=== PATIENT | male | born 1985 | race Caucasian/White ===

== ENCOUNTER 2018-08-13 13:02 | Inpatient (IN) | payer OTHER, SELFPAY ==
[2018-08-04 15:14] VITALS: BMI 26.6
[2018-08-13] VITALS (12 sets, daily range): BP systolic 125–148; BP diastolic 72–89; PULSE 70–86; RESP 12–21; TEMP 36.3–36.9; O2SAT 92–99; BMI 26.6
--- NOTE | 2018-08-13 | DI.RAD.S_ITS ---
PROCEDURE: XR CERVICAL SPINE 2V OR 3V INDICATIONS: C5-6, C6-7 ACDF TECHNIQUE: 2 intraoperative spot view(s) of the cervical spine were acquired. COMPARISON: None. FINDINGS: Intraoperative images demonstrate C5-C7 anterior fusion. IMPRESSION: Low anterior cervical fusion. Dictated by: Karthik Morales M.D. on 08/13/2018 at 17:43 Approved by: Karthik Morales M.D. on 08/13/2018 at 17:43
[2018-08-13] MEDS: LACTATED RINGERS 1,000 ML 42 ML IV ×2 (13:56→16:57)
--- NOTE | 2018-08-13 15:29 | PM.PREOP ---
Pre-operative Note Interval Note Pre-op Check: Yes History & Physical Reviewed by Physician, Yes Exam Performed and Yes History & Physical exam performed today by Physician Changes: No
[2018-08-13] MEDS: CEFAZOLIN 2 GM/100 ML FROZ.PIGGY IV (16:10)
--- NOTE | 2018-08-13 16:30 | SUR.OPER ---
Supine, head on gel donut. Arms padded with gel pads, tucked at sides, towel roll under shoulders. Safety belt at thigh. Legs uncrossed.
--- NOTE | 2018-08-13 17:46 | PM.OP.1 ---
Operative Date/Time/Diagnoses Date of procedure: 08/13/18 Time of procedure: 15:46 Pre-op diagnosis: 1. C5-6, C6-7 spinal stenosis 2. C5-6, c6-7 disc herniation with radiculopathy Post-op diagnosis: same Procedure & Clinicians Procedure: 1. C5-6 C6-7 anterior cervical diskectomy and fusion 2. C5-6 C6-7 anterior interbody cage placement 3. C5-6 C6-7 anterior instrumentation with plate and screw placement in C5-C6 and C7 vertebrae 4. Utilization of microsurgical technique and operating microscope Same procedure as scheduled: Yes Indications: Patient has been having chronic neck pain and worsening cervical radiculopathy. Patient failed multiple conservative management with worsening pain weakness and numbness in her upper extremity. Patient has been having difficulty performing activity of daily living. After discussing risks benefits of treatment options, patient elected proceed with surgery. Surgeon: Darius Mcmahan Payroll Benefits Administrator: Julee Benites Click Yes if Unassisted: No Anesthesia Type: General Operative Notes Closure Type: primary Specimen(s): none sent Estimated Blood Loss (mL): 50 Blood products transfused: none Procedure in detail: Patient was seen in the preoperative area. Risks and benefits of the surgery was discussed with the patient. Operative consent was obtained and placed in the chart. Patient was then taken to the operative room. Prophylactic antibiotic was given less than 0.5 hr prior to skin incision. General anesthesia was administered. Patient was placed into a supine position on her radiolucent table. Bilateral shoulders were taped down to allow proper C-arm imaging. Anterior cervical area was prepped and draped in a sterile fashion. Time-out was performed at this time. Using lateral C-arm imaging, the level between C5 and C7 was identified and marked on patient's neck. A oblique incision from midline towards medial border of sternocleidomastoid muscle was made. The platysma muscle was incised in line with skin incision. Metzenbaum scissor was used to develop the plane between the medial border of sternocleidomastoid d and the strap muscles medially. The carotid sheath and its contents were identified and protected behind the hand-held retractor during the entire case. The plane between the carotid sheath and strap muscles was developed with Metzenbaum scissors. Dissection was made down to the level of the anterior cervical fascia. Longus colli muscle was incised on the anterior aspect of vertebral bodies bilaterally from C5-C7. Spinal needle was placed into the C5-6 disc space and confirmed with lateral C-arm imaging. Using microsurgical technique and operative microscope, anterior cervical diskectomy was performed at C5-6 and C6-7 level. This was done by removing the disc material, removing the anterior and posterior osteophytes posterior longitudinal ligaments along with performing bilateral foraminotomies at both levels. Patient was found to have severe central and foraminal stenosis at both levels due to disc hernation. Patient's stenosis was fully decompressed after decompression was completed. After the diskectomy was completed, 2 anterior interbody cages were obtained. The cages were packed with globus via cell bone grafting material. One cage each along with the bone grafting material was then packed into the interbody spaces from C5-C7 with one cage into each interbody level. After the cages were placed, the anterior cervical plate was stabilized to the C5-C7 vertebrae using 2 screws at each each level. Total 6 screws were placed. After confirming placement of the hardware with AP and lateral C-arm imaging, the screws were locked into the plate using the locking mechanism and torque limiting screwdriver. After the hardware was placed and confirmed with AP and lateral C-arm imaging, the wound was irrigated with sterile normal saline. The platysma muscle and the subcutaneous tissue was closed with 2-0 Vicryl. The skin was closed with 4-0Monocryl and Steri-Strips. Patient tolerated the procedure well. Patient was transferred recovery room in stable condition. There were no complications. Complications: none Condition: stable Disposition: PACU
[2018-08-13] MEDS: HYDROMORPHONE 2 MG INJ 0.5 MG IV ×2 (18:08→18:13)
--- NOTE | 2018-08-13 18:47 | SUR.PHASEI ---
stable pacu stay, medicated with dilaudid, dressing remained c/d/i, neck with no swelling. speech and swallow strong and intact. pt transported up to room 221 and left in stable condition.
--- NOTE | 2018-08-13 19:01 | PC.NURSE ---
1835 :Pt to acute care from PACU. Transferred via bed. Drowsy/oriented. Reports 3/10 pain in posterior neck/shoulders, ice pack applied. Dressing to anterior neck c/d/i, soft collar in place, denies numbness/tingling. Spouse present at bedside for admission. IV flushed well/fluids started per order. Bilateral foot SCDs applied. Oriented to room and call light.
[2018-08-13] MEDS: hydrOXYzine pamoate 25 MG CAPSULE PO (19:18)
[2018-08-13] MEDS: SODIUM CHLORIDE 0.9% 1,000 ML 100 ML IV (19:20)
[2018-08-13] MEDS: OXYCODONE IR 5 MG TABLET 10 MG PO (22:05)
[2018-08-14 00:10] VITALS: BP 136/66; PULSE 69; RESP 16; TEMP 36.8; O2SAT 95
[2018-08-14] MEDS: CEFAZOLIN 2 GM/100 ML FROZ.PIGGY IV ×2 (00:16→07:33)
[2018-08-14] MEDS: HYDROMORPHONE 1 MG INJ 0.5 MG IV (00:16)
[2018-08-14] MEDS: OXYCODONE IR 5 MG TABLET 10 MG PO ×4 (01:08→11:02)
[2018-08-14 04:24] VITALS: BP 136/74; PULSE 84; RESP 16; TEMP 36.7; O2SAT 96
[2018-08-14] MEDS: DOCUSATE 100 MG CAPSULE PO (07:42)
[2018-08-14] MEDS: SODIUM CHLORIDE 0.9% FLUSH 10 ML IV (07:42)
[2018-08-14 08:00] VITALS: BP 132/90; PULSE 104; RESP 16; TEMP 37.1; O2SAT 95
--- NOTE | 2018-08-14 08:11 | PM.DS.1 ---
History of Present Illness Date Patient Seen: 08/14/18 Time Patient Seen: 08:11 Chief complaint: C5-6 C6-7 acdf [id number] Narrative: Details of the patient's H&P be found in the electronic chart. Patient is a 33-year-old male with history of neck pain with radiation down to fingers. He failed conservative measures and elected to proceed with a C5-6, C6-[address] Mcmahan at [facility]. Discharge Providers Date of admission: 08/13/18 13:02 Primary care physician: Karolyn Alicea DO Consults: 08/13/18 18:41 Consult to Occupational Therapy Evaluate & Treat Comment: Physician Instructions: Evaluate and treat Consult to Physical Therapy Evaluate & Treat Comment: Physician Instructions: Evaluate and Treat 08/13/18 18:58 Consult to Respiratory Therapy Evaluate & Treat Comment: Physician Instructions: Evaluate and treat Discharge provider: Rachael Rosario PA-C Discharge Date: 08/14/18 Summary Discharge Diagnosis: 1. C5-6, C6-7 spinal stenosis 2. C5-6, C6-7 disc herniation with radiculopathy Hospital Course: Patient was admitted and taken operating room where had a C5-6, C6-[address] Mcmahan. He recovered well and was transferred to the floor for further care. Postop day 1 pain was under control, able to swallow without difficulty, eating and drinking well, urinating without difficulty and ambulating well. He will be discharged home after physical therapy this morning. He will be discharged with prescription for oxycodone 10 mg and Vistaril 25 mg. He will follow up as scheduled [facility] in 10-14 days. Status at Discharge Cognitive/behavioral status at discharge: Alert orient x3 Functional status at discharge: independent ambulation Overall status at discharge: patient is progressing back to baseline Time Spent with Patient Less than 30 minutes Exam Vital Signs (past 8 hours): - 08/14/18 04:24 Temperature 98.0 F Pulse Rate 84 Respiratory Rate 16 Blood Pressure 136/74 Pulse Oximetry 96 Oxygen Delivery Method Nasal Cannula Oxygen Flow Rate 0 Narrative Exam Narrative: Patient in bed. Appears comfortable. Alert orient x3. Soft neck collar on. Left neck dressing clean dry and intact. 5/5 BUE strength. Neurovascular status intact. Bilateral calf soft and nontender. Discharge Plan Discharge Plan Patient Disposition: Home Discharge comment: Wear soft collar until follow-up visit. Do not take more than 4000mg/day of Tylenol from all sources. Do not take anti-inflammatories for 90 days after surgery. Discharge Med Rec/Prescriptions Prescriptions: New acetaminophen 325 mg Tablet 650 mg PO Q6HR PRN (Reason: Pain, Mild (1-3)) Qty: 0 RF: 0 docusate sodium 100 mg Capsule 100 mg PO BID Qty: 60 RF: 0 hydroxyzine pamoate 25 mg Capsule 25 mg PO Q4HR PRN (Reason: Nausea And Vomiting) Qty: 40 RF: 0 oxycodone 10 mg tablet 10 mg PO Q4-6H PRN (Reason: pain) Qty: 42 RF: 0 Discontinued ibuprofen 800 mg Tablet 800 mg PO TID PRN (Reason: Pain (Scale Score 4-6)) RF: 0 Follow up/Referrals: Darius Mcmahan MD [Physician] - (Follow-up as scheduled time and date. Contact office with any issues or concerns.) Provider Discharge Instructions Diet: Diet as Tolerated Diet comment: If difficulty swallowing, more liquids and soft foods. Activity: Activity as tolerated. Limit lifting bending and twisting of the neck. Cold/Heat Therapy: Apply ice to the area as needed for pain and inflammation. Skin/Wound/Dressing Care Report to your healthcare provider any signs of infection, such as:: chills, fever, increased pain and unusual drainage Dressing: Leave dressing clean dry and intact. May shower. Discharge Data Primary Care Provider: Karolyn Alicea Attending Provider: Darius Mcmahan Admit Date/Time: 08/13/18 13:02 Quality VTE Deep Vein Thrombosis/Pulmonary Embolism Present on Admission: No
--- NOTE | 2018-08-14 08:16 | P.DS_ITS ---
History of Present Illness Date Patient Seen: 08/14/18 Time Patient Seen: 08:11 Chief complaint: C5-6 C6-7 acdf [id number] Narrative: Details of the patient's H&P be found in the electronic chart. Patient is a 33-year-old male with history of neck pain with radiation down to fingers. He failed conservative measures and elected to proceed with a C5-6, C6 -[address] Mcmahan at [facility]. Discharge Providers Date of admission: 08/13/18 13:02 Primary care physician: Karolyn Alicea DO Consults: 08/13/18 18:41 Consult to Occupational Therapy Evaluate & Treat Comment: Physician Instructions: Evaluate and treat Consult to Physical Therapy Evaluate & Treat Comment: Physician Instructions: Evaluate and Treat 08/13/18 18:58 Consult to Respiratory Therapy Evaluate & Treat Comment: Physician Instructions: Evaluate and treat Discharge provider: Rachael Rosario PA-C Discharge Date: 08/14/18 Summary Discharge Diagnosis: 1. C5-6, C6-7 spinal stenosis 2. C5-6, C6-7 disc herniation with radiculopathy Hospital Course: Patient was admitted and taken operating room where had a C5-6 , C6-[address] Mcmahan. He recovered well and was transferred to the floor for further care. Postop day 1 pain was under control, able to swallow without difficulty, eating and drinking well, urinating without difficulty and ambulating well. He will be discharged home after physical therapy this morning. He will be discharged with prescription for oxycodone 10 mg and Vistaril 25 mg. He will follow up as scheduled [facility] in 10-14 days. Status at Discharge Cognitive/behavioral status at discharge: Alert orient x3 Functional status at discharge: independent ambulation Overall status at discharge: patient is progressing back to baseline Time Spent with Patient Less than 30 minutes Exam Vital Signs (past 8 hours): - 08/14/18 04:24 Temperature 98.0 F Pulse Rate 84 Respiratory Rate 16 Blood Pressure 136/74 Pulse Oximetry 96 Oxygen Delivery Method Nasal Cannula Oxygen Flow Rate 0 Narrative Exam Narrative: Patient in bed. Appears comfortable. Alert orient x3. Soft neck collar on. Left neck dressing clean dry and intact. 5/5 BUE strength. Neurovascular status intact. Bilateral calf soft and nontender. Discharge Plan Discharge Plan Patient Disposition: Home Discharge comment: Wear soft collar until follow-up visit. Do not take more than 4000mg/day of Tylenol from all sources. Do not take anti-inflammatories for 90 days after surgery. Discharge Med Rec/Prescriptions Prescriptions: New acetaminophen 325 mg Tablet 650 mg PO Q6HR PRN (Reason: Pain, Mild (1-3)) Qty: 0 RF: 0 docusate sodium 100 mg Capsule 100 mg PO BID Qty: 60 RF: 0 hydroxyzine pamoate 25 mg Capsule 25 mg PO Q4HR PRN (Reason: Nausea And Vomiting) Qty: 40 RF: 0 oxycodone 10 mg tablet 10 mg PO Q4-6H PRN (Reason: pain) Qty: 42 RF: 0 Discontinued ibuprofen 800 mg Tablet 800 mg PO TID PRN (Reason: Pain (Scale Score 4-6)) RF: 0 Follow up/Referrals: Darius Mcmahan MD [Physician] - (Follow-up as scheduled time and date. Contact office with any issues or concerns.) Provider Discharge Instructions Diet: Diet as Tolerated Diet comment: If difficulty swallowing, more liquids and soft foods. Activity: Activity as tolerated. Limit lifting bending and twisting of the neck. Cold/Heat Therapy: Apply ice to the area as needed for pain and inflammation. Skin/Wound/Dressing Care Report to your healthcare provider any signs of infection, such as:: chills, fever, increased pain and unusual drainage Dressing: Leave dressing clean dry and intact. May shower. Discharge Data Primary Care Provider: Karolyn Alicea Attending Provider: Darius Mcmahan Admit Date/Time: 08/13/18 13:02 Quality VTE Deep Vein Thrombosis/Pulmonary Embolism Present on Admission: No
--- NOTE | 2018-08-14 09:46 | PT.IIE ---
Addendum entered and electronically signed by Sonam Barrios PT 08/14/18 14:10: this is to certify that I have reviewed this POC and documentation. Original Note: Current Diagnoses Other spondylosis with radiculopathy, cervical region (08/13/18) Spinal stenosis, cervical region (08/13/18) Surgery Performed Operation Date: 08/13/18 14:45 Actual Procedures p C5-6,C6-7 ACDF w/Anterior Instru. - Darius Mcmahan MD Medical History (Last Updated 08/04/18 @ 15:21 by Kasandra Jamison RN) Alcohol dependence (Acute) Cervical spinal stenosis (Acute) Depressive disorder (Acute) Radiculopathy (Acute) Physical Therapy Inpatient Evaluation/Re-Eval M1 PT/OT-IP Prior Functional Status Start: 08/14/18 09:32 Freq: NEEDED Status: Discharge Protocol: Document 08/14/18 09:40 CCC (Rec: 08/14/18 09:55 CCC [email or web address]) Medical Review Prior Functional Status Medical History Reviewed Yes Communication Independent. Mobility and Gait Independent with no device. Activities of Daily Living and IADL's Independent. Social History Household Members spouse children Living Arrangements Apartment/Condo Number of Stairs To Enter/Railing? One step into his townhouse and 13 steps with right hand rail going up. Home Environment Standard Height Toilet Tub/Shower Doors Home Equipment Shower Seat without Backrest Employment Status Active Duty M1 PT/OT-IP Prior Functional Status Start: 08/14/18 11:43 Freq: NEEDED Status: Active Protocol: Document 08/14/18 09:46 (Rec: 08/14/18 12:00 [email or web address]) Medical Review Prior Functional Status Medical History Reviewed Yes Communication No deficits noted. Mobility and Gait Independent with all mobilties using no AD including driving and self care. Social History Household Members spouse children Living Arrangements Apartment/Condo Number of Stairs To Enter/Railing? One step into his townhouse and 13 steps with right hand rail going up. Home Environment Standard Height Toilet Tub/Shower Employment Status Active Duty Additional Social History Comment Pt lives with , and 2 children 4 and 1 y/o. Has a chair with rubber feet he can use as a shower chair. Shower and bedroom are upstairs. M2 PT-IP Current Condition Start: 08/14/18 11:43 Freq: NEEDED Status: Active Protocol: Document 08/14/18 09:46 (Rec: 08/14/18 12:00 [email or web address]) Physical Therapy Current Condition Current Condition Evaluation Date 08/14/18 Treatment Diagnosis C spine discectomy/fusion; difficulty walking Onset Date 08/13/2018 Precautions Cervical Spine Precautions Soft Collar for Comfort No Heavy Lifting Log Roll M3 PT-IP Subjective Start: 08/14/18 11:43 Freq: NEEDED Status: Active Protocol: Document 08/14/18 09:46 (Rec: 08/14/18 12:00 [email or web address]) Subjective Physical Therapy Visit Type Type Initial Evaluation Visit Start Time 09:46 Visit Stop Time 10:10 Total Visit Minutes 24 Number of [employer] AND SKIN Visits 0 Physical Therapy Visit Comments Patient Comments Pt agreeable to mobilize with PT. Patient Goals Pt planning to d/c home with who is avaliable for 24/7 assist, as well as his brother in law who is also avaliable for 24/7 assist for 1 wk. Therapy Pain Assessment Pain Present Pain Present Pain Reported Location Neck Scale Used 3-4/10 Pain Management Techniques Apply Cold Modification of Treatment Re-positioning Timing of Activity with Medications M4 PT-IP Mobility and Gait Start: 08/14/18 11:43 Freq: NEEDED Status: Active Protocol: Document 08/14/18 09:46 (Rec: 08/14/18 12:00 [email or web address]) PT-Bed Mobility Assessment Rolling Type of Rolling Bilateral Level of Assist Standby Assistance Supine to Sit Supine to Sit Standby Assistance Sit to Supine Sit to Supine Standby Assistance Scooting Scooting to Edge of Bed Standby Assistance PT-Transfer Assessment Sit to and From Stand Sit to and from Stand Standby Assistance Equipment Transfer Assistive Device None Gait Belt Front Wheeled Walker Orthotic/Prosthetic Devices or Brace: Yes Transfers Transfer Destination Bed Wheelchair Transfer Technique Ambulates between surfaces. Comments Mobility Comments Resting/supine/HOB BP 137/84 HR 97. Supine <> sit is SBA min cues. Sit <> stand assessed first with fww and is SBA no cues, pt does not use UE. Sit <> stand no AD is SBA . Gait Assessment Gait Gait Assistance Required: Standby Assistance Distance (Feet) 250 Able to Maintain Weight Bearing Status Yes During Gait Assistive Devices Assistive Device None Gait Belt Front Wheeled Walker Orthotic/Prosthetic Devices or Brace: No Gait Deviations General Gait Pattern Within Normal Limits Factors Limiting Gait Function Factors Limiting Gait Function Decreased Activity Tolerance Limited Range of Motion Pain Comments Gait Comments Pt ambulates 20 ft in room with fww SBA demonstrating no LOB. Pt ambulates 250 ft with no AD SBA demonstrating good posture, gait mechanics and no LOB. Stair Climbing Assessment Evaluation Level of Assist On Stairs Standby Assistance Devices Stair Climbing Assistive Devices Right Railing Technique/Endurance Stair Climbing Direction Ascend and Descend Stair Climbing Technique Step Over Step Number of Steps Climbed 3 Query Text: Stair Climbing Set # Repetitions (reps) 5 Comments Stair Climbing Comments Pt up/down 15 steps using R rail SBA with no LOB. Pt without c/o of nausea or dizziness. Post session BP 138/78 HR 86. PT-Balance Assessment Sitting Balance and Reactions Static Sitting Balance Ability Good Dynamic Sitting Balance Ability Good Standing Balance and Reactions Static Standing Balance Ability Good Dynamic Standing Balance Ability Good Device Used none M5 PT-IP Objective Assessments Start: 08/14/18 11:43 Freq: NEEDED Status: Active Protocol: Document 08/14/18 09:46 (Rec: 08/14/18 12:00 [email or web address]) Orientation Orientation/Cognition Level of Alertness Alert Orientation Name Age Birthday Month Date Year Day of Week Place Situation Language Function Ability No Deficits Noted Safety Awareness Understands Safety Issues Gross Range of Motion Lower Extremity ROM Assessment Within Functional Limits Strength Lower Extremity Strength Assessment Within Functional Limits Sensation Assessment Comments Sensation Comments Pt reports no numnbess, tingling or radicular symptoms . M6 PT-IP Treatment Start: 08/14/18 11:43 Freq: NEEDED Status: Active Protocol: Document 08/14/18 09:46 (Rec: 08/14/18 12:00 [email or web address]) Physical Therapy Treatment Education Education Provided Precautions Weight Bearing Status Post-Op Packet Safety M7 PT-IP Assessment and Plan Start: 08/14/18 11:43 Freq: NEEDED Status: Active Protocol: Document 08/14/18 09:46 (Rec: 08/14/18 12:00 [email or web address]) PT Summary Assessment and Plan Potential Rehabilitation Potential Good Status of Condition at Evaluation Stable Summary Impairments Pain ROM Strength Bed Mobility Transfers Gait Activity Tolerance Progress Towards Goals Progressing Toward Goals Assessment Summary Pt s/p cervical discectomy/ fusion and difficulty walking. He was able to ambulate 250 ft no AD SBA as well as up/ down 15 steps using R rail SBA . Recommend d/c to home with assist. Goals Bed Mobility Goal Independent Transfer Goal Independent Gait Goal Independent Gait Distance 300 Other Goals Up/down 15 steps independently with R rail Days to Meet Goals 2 Frequency of Treatment Frequency Of Treatment Twice a Day Treatment Plan Physical Therapy Treatment Plan Bed Mobility Training Transfer Training Gait Training Therapeutic Exercise Balance Retraining Post Op Education Discharge Planning Hot or Cold Pack Neuromuscular Re-ed Coordination Retraining Manual Therapy Other Recommendations and Next Treatment Progress ambulation and stair Focus climbing. Recommendations To Nursing Amount of Assist Needed Standby Assistance Discharge Recommendations PT Discharge Recommendations Home with Assistance
--- NOTE | 2018-08-14 09:55 | OT.IP.EVAL ---
Current Diagnoses Other spondylosis with radiculopathy, cervical region (08/13/18) Spinal stenosis, cervical region (08/13/18) Surgery Performed Operation Date: 08/13/18 14:45 Actual Procedures p C5-6,C6-7 ACDF w/Anterior Instru. - Darius Mcmahan MD Past Medical History (Last Updated 08/04/18 @ 15:21 by Kasandra Jamison RN) Alcohol dependence (Acute) Cervical spinal stenosis (Acute) Depressive disorder (Acute) Radiculopathy (Acute) Occupational Therapy Inpatient Evaluation/Re-Eval M1 PT/OT-IP Prior Functional Status Start: 08/14/18 09:32 Freq: NEEDED Status: Active Protocol: Document 08/14/18 09:40 [facility] (Rec: 08/14/18 09:55 [facility] [id number]) Medical Review Prior Functional Status Medical History Reviewed Yes Communication Independent. Mobility and Gait Independent with no device. Activities of Daily Living and IADL's Independent. Social History Household Members spouse children Living Arrangements Apartment/Condo Number of Stairs To Enter/Railing? One step into his townhouse and 13 steps with right hand rail going up to second floor. Home Environment Standard Height Toilet Tub/Shower Doors Home Equipment Shower Seat without Backrest Employment Status Active Duty M2 OT-IP Current Condition Start: 08/14/18 09:32 Freq: Status: Active Protocol: Document 08/14/18 09:40 [facility] (Rec: 08/14/18 09:55 [facility] [id number]) Occupational Therapy Current Condition Current Condition Evaluation Date 08/14/18 Treatment Diagnosis Cervical spinal stenosis Diagnosis Onset Date 08/13/18 Post Operative Precautions Cervical Spine Precautions Soft Collar for Comfort Soft Collar at all Times No Heavy Lifting Log Roll M3 OT- IP Subjective and Pain Start: 08/14/18 09:32 Freq: Status: Active Protocol: Document 08/14/18 09:40 [facility] (Rec: 08/14/18 09:55 [facility] [id number]) OT- Subjective Occupational Therapy Visit Type Type Initial Evaluation Visit Start Time 09:10 Visit Stop Time 09:30 Total Visit Minutes 20 Occupational Therapy Visit Comments Patient/Caregiver Goals To go home today. OT Pain Assessment Pain When Pain Assessed At Rest Pain Present Pain Present Denied Pain M4 OT- IP ADL's Start: 08/14/18 09:32 Freq: Status: Active Protocol: Document 08/14/18 09:40 [facility] (Rec: 08/14/18 09:55 [facility] [id number]) OT XMA-Bget-Vtkqisy Comments OT Self-Feeding Comments Educated pt to get while sitting 90 degrees upright, alternate between solids and liquids, best to eat softer foods initially. OT ADL-Grooming General Evaluation Grooming Ability Independent OT ADL-Oral Care General Eval Oral Care Ability Independent OT ADL-Dressing General Eval Lower Body Dressing Ability Standby Assistance Comments OT Dressing Comments Pt initially standing while putting on pants and able to get left side in and then realized that it would be best to sit down to get right leg in. Pt able to ashley/doff soft collar independently after education. OT ADL-Toileting Comments OT Toileting Comments Pt states does not need to go and have already been to the bathroom earlier on his own. OT ADL-Bathing Comments OT Bathing Comments Pt states to shower at home. Gave pt post cervical surgery information and pt has good understanding for all needs. M5 OT- IP IADL's Start: 08/14/18 09:32 Freq: Status: Active Protocol: Document 08/14/18 09:40 [facility] (Rec: 08/14/18 09:55 [facility] [id number]) OT-Instrumental Activities of Daily Living Home Safety Awareness Home Safety Comments Pt's spouse to provide assist for IADl needs at this time. M6 OT- IP Functional Cognition Start: 08/14/18 09:32 Freq: Status: Active Protocol: Document 08/14/18 09:40 [facility] (Rec: 08/14/18 09:55 [facility] [id number]) Cognitive Factors Limiting Selfcare Function Cognitive Ability Level of Alertness Alert Patient Orientation Name Age Place Situation Attention Span Ability Capable of Focused Attention Capable of Sustained Attention Ability to Follow Commands Able to Follow Multi-Step Commands Memory Description No Deficits Noted Safety Awareness Underestimates Need for Assistance Cognitive Comments Cognitive Assessment Comments Pt a bit impulsive and needing vc to sit down to ashley pants. OT- Vision and Hearing OT- Hearing Assessment OT- Hearing Assessment WFL M7 OT- IP Mobility and Balance Start: 08/14/18 09:32 Freq: Status: Active Protocol: Document 08/14/18 09:40 [facility] (Rec: 08/14/18 09:55 [facility] [id number]) OT- Bed Mobility Assessment Rolling Type of Rolling Roll to Right Level of Assistance Independent Supine to Sit Supine to Sit Assist Standby Assistance OT-Transfer Assessment Sit to and From Stand Sit to and from Stand Independent Transfers Transfer Ability Independent Standby Assistance Technique Transfer Destination Bed Transfer Technique Stand Step Pivot Devices Transfer Assistive Devices None Comments Mobility Comments Pt able to ambulate in the room with independently. Pt needs cues to slow down as tends to be a bit impulsive. OT- Balance Assessment Sitting Balance and Reactions Static Sitting Balance Ability Normal Dynamic Sitting Balance Ability Normal Standing Balance and Reactions Static Standing Balance Ability Normal Dynamic Standing Balance Ability Good M8 OT- IP Objective Assessments Start: 08/14/18 09:32 Freq: Status: Active Protocol: Document 08/14/18 09:40 [facility] (Rec: 08/14/18 09:55 [facility] [email or web address]) OT Strength Upper Extremity Strength Assessment Within Functional Limits OT-Muscle Tone Assessment Muscle Tone WNL Yes M9 OT- IP Assessment and Plan Start: 08/14/18 09:32 Freq: Status: Active Protocol: Document 08/14/18 09:40 [facility] (Rec: 08/14/18 09:55 [facility] [email or web address]) OT Summary Assessment and Plan Summary OT Impairments Pain Dressing Bathing Progress Towards Goals Progressing Toward Goals Assessment Summary Pt Low complexity and main barrier is decreased safety awareness as pt a bit impulsive and needs cues to slow down. Pt's to be home to assist pt for needs and to discharge home today. Goals Patient/Caregiver Education Goal Demonstrate Post-Op Precautions Caregiver Independent Assisting Patient Days to Meet Goals 1 Frequency of Treatment Frequency Of Treatment Once a Day Treatment Plan OT Treatment Plan Patient/Family Education Discharge Planning Discharge Recommendations OT Discharge Recommendations Home with Assistance
--- NOTE | 2018-08-14 11:58 | CM.DANOTE ---
DCP Chart Review and Discharge Home Patient is a 33 year old male who was admitted on 08/13/18 for C5-C7. Pt has [employer] for insurance and his PCP is Dr. Karolyn Alicea. EMR was reviewed. Per Ortho PA, pt medically stable to d/c home after PT and no identified barriers to discharge. Per PT, recommending safe d/c home with spouse today in [place] and follow up after discharge. No SW bedside assessment at this time due to triage needs and no identified d/c needs for the pt. Plan: Patient to d/c home today via spouse POV and No SW needs at this time. JOSE Plasencia
== END 2018-08-14 11:43 | disposition home or self-care (01) | DRG 473 ==
PROVIDERS: Admitting Provider Orthopaedic Surgery Orthopaedic Surgery of the Spine; PCP Family Medicine; Visit Provider Orthopaedic Surgery Orthopaedic Surgery of the Spine
PROC: 0RG20A0 Fusion of 2 or more Cervical Vertebral Joints with Interbody Fusion Device, Anterior Approach, Anterior Column, Open Approach (ICD-10-PCS; principal; 2018-08-13 14:45)
DX: M48.02 Spinal stenosis, cervical region (principal); M50.122 Cervical disc disorder at C5-C6 level with radiculopathy
CPT/HCPCS: 72040; 76001; 97116; 97161; 97165; 99406; C1776; J0330; J0690; J1170; J2250; J2405; J2704; J3010